=== PATIENT | female | born 1965 | race Caucasian/White ===

== ENCOUNTER → 2016-11-11 | Outpatient (CLI) | payer MEDICAID, MEDICARE ==
[~2016-11-11] MED LIST: NS FOR INJ. 20 ML VIAL INJ ONE; ONABOTULINUM TOXIN A 100 UNIT IM ONE; PROP1TAB59 PO; [UNRECOGNIZED DRUG - CODE] PO
== END ==
LOC: NEU 09:32
PROVIDERS: ATTEND Psychiatry & Neurology Neurology
DX: G43.719 Chronic migraine without aura, intractable, without status migrainosus (principal)
CPT/HCPCS: 64615; J0585